=== PATIENT | female | born 2000 ===

== ENCOUNTER 2019-07-24 02:34 | Emergency (ER) | payer SELFPAY ==
[2019-07-24 02:54] VITALS: BP 133/78
[2019-07-24 03:44] LABS: Bilirubin,Urine NEG (Negative); Blood,Urine NEG (Negative); Color,Urine Yellow (Yellow); Mucus,Urine FEW /HPF; Protein,Urine <15 mg/dL mg/dL (Negative); Urobilinogen,Urine < 2.0 mg/dL (<2.0)
[2019-07-24 04:00] LABS: HCG Qualitative,Urine Negative (Negative)
== END 2019-07-24 03:30 | disposition left against medical advice (07) ==
LOC: ED 02:34
DX: R10.9 Unspecified abdominal pain (principal); Z53.21 Procedure and treatment not carried out due to patient leaving prior to being seen by health care provider
CPT/HCPCS: 81001; 81025